=== PATIENT | female | born 1955 | race Caucasian/White ===

== ENCOUNTER 2023-06-20 23:03 | Emergency (ER) | payer MEDICARE, OTHER ==
[~2023-06-20] VITALS: Ht 160 cm; Wt 79.4 kg
[2023-06-20] MEDS ORDERED: Ondansetron 4 MG SoluTab SL PRN ×2 (23:30→23:40)
[2023-06-20] MEDS ORDERED: Ketorolac Tromethamine 30mg Vial IV ONE (23:55)
[2023-06-20] MEDS ORDERED: NS 1,000 ML IV SCH (23:55)
[2023-06-21 00:06] LABS: BASOPHILS ABSOLUTE AUTO 0.06 K/mm3 (0.00-0.23); BASOPHILS PERCENT AUTO 1 % (0-2); EOSINOPHILS ABSOLUTE AUTO 0.04 K/mm3 (0.00-0.68); EOSINOPHILS PERCENT AUTO 0 % (0-6); Hematocrit 44.2 % (33.0-51.0); Hemoglobin 15.6 g/dL (11.5-16.0); IMMATURE GRAN ABSOLUTE AUTO 0.05 K/mm3 (0.00-0.10); IMMATURE GRAN PERCENT AUTO 0 % (0-1); LYMPHOCYTES ABSOLUTE AUTO 1.32 K/mm3 (0.84-5.20); LYMPHOCYTES PERCENT AUTO 11 % (21-46); MONOCYTES PERCENT AUTO 3 % (4-13); Mean Corpuscular HGB Conc 35.3 g/dL (31.5-36.5); Mean Corpuscular Volume 88 fL (80-100); Mean Platelet Volume 11.2 fL (9.1-12.4); NEUTROPHILS ABSOLUTE AUTO 10.76 K/mm3 (1.96-9.15); NEUTROPHILS PERCENT AUTO 85 % (41-73); Platelet Count 288 K/mm3 (150-400); RDW Coefficient Variation 13.1 % (11.7-14.2); RDW Standard Deviation 42.3 fL (35.1-46.3); Red Blood Cell Count 5.03 M/mm3 (3.80-5.20); White Blood Cell Count 12.63 K/mm3 (4.00-11.30)
[2023-06-21] MEDS ORDERED: Ondansetron HCl 2 MG / ML 2ML Vial IV ONE (00:35)
[2023-06-21 00:40] LABS: Albumin, Blood 3.8 g/dL (3.4-5.0); Bilirubin, Total 0.4 mg/dL (0.1-1.0); Bun/Creatinine Ratio 23.4 (12.0-20.0); Calcium, Blood 9.3 mg/dL (8.5-10.1); Creatinine, Blood 0.51 mg/dL (0.40-1.00); Globulin, Blood 3.7 g/dL (2.2-4.0); Potassium, Blood 3.7 mmol/L (3.5-5.5); Total Protein, Blood 7.5 g/dL (6.4-8.2)
[2023-06-21 01:50] LABS: Source, Urine Clean Catch
[2023-06-21 01:56] LABS: Appearance, Urine Clear (Clear); Bilirubin, Urine Neg (Neg); Blood, Urine 2+ (Neg); Color, Urine Yellow (P-Yellow); Glucose Qualitative, Urine 1+ (Neg); Ketones, Urine Neg (Neg); Leukocyte Esterase, Urine Neg (Neg); Nitrite, Urine Neg (Neg); Protein, Urine 2+ (Neg); Urobilinogen, Urine NORM (Normal)
[2023-06-21 02:00] LABS: Bacteria Not Seen /hpf; Squamous Epithelial Cells Not Seen /hpf (Few); White Blood Cells, Urine Not Seen /hpf (0-5)
[2023-06-21] MEDS ORDERED: RX Prepack 2 Tabs Ondansetron ODT 4MG UD ONE (03:00)
[2023-06-21] MEDS ORDERED: ONDA4ODT MM (03:02)
[2023-06-21] MEDS ORDERED: AMOCLA875 PO (03:02)
[2023-06-21] MEDS ORDERED: Amoxicillin/Clavulanate K 875 MG Tab PO ONE (03:10)
== END 2023-06-21 03:25 | disposition home or self-care (01) ==
LOC: ER 23:03
PROVIDERS: Student in an Organized Health Care Education/Training Program
DX: K52.9 Noninfective gastroenteritis and colitis, unspecified (principal)
CPT/HCPCS: 74177; 80053; 81001; 83605; 83690; 85025; 96361; 96374-59; 96375; 99284-25; A9270; J1885; J2405; J7030; Q9967